=== PATIENT | female | born 1985 | race Caucasian/White ===

== ENCOUNTER 2022-11-08 08:51 | Outpatient (CLI) | payer BC, SELFPAY ==
--- NOTE | 2022-11-08 09:15 | CRLHL7_ITS ---
For Patients: As a result of the Century Cures Act, medical imaging exams and procedure reports are released immediately into your electronic medical record. You may view this report before your referring provider. If you have questions, please contact your health care provider. CLINICAL HISTORY: Epigastric pain FINDINGS: The patient`s liver is of normal size and has uniform echogenicity. There is a normal appearance of the hepatic IVC and proximal abdominal aorta. There is no evidence of ascites. The gallbladder is of normal size and there is no evidence of intraluminal stones or sludge. The gallbladder wall measures 1 mm in thickness. The common bile duct is of normal size and measures 4 mm in diameter at the level of the gennaro hepatis. The pancreas appears normal. There is no evidence of a stone or hydronephrosis within the right kidney. The right kidney measures 10.7 cm in length. Tiny too small to characterize 3 millimeter hyperechoic focus the right inferior kidney could be related to angiomyolipoma. IMPRESSION: Unremarkable ultrasound. Too small to characterize tiny 3 millimeter hyperechoic focus in the right lateral inferior kidney nonspecific could represent a tiny angiomyolipoma. Dictated by Angella Joshua MD @ 11/08/2022 10:01:28 AM (Electronically Signed)
== END 2022-11-08 08:52 | disposition home or self-care (01) ==
LOC: US 08:52
PROVIDERS: Visit Provider Physician Assistant Medical
DX: R10.13 Epigastric pain (principal)
CPT/HCPCS: 76705; 80053; 80061; 84439; 84443

== ENCOUNTER 2023-01-13 10:04 | Outpatient (CLI) | payer BC, SELFPAY ==
--- NOTE | 2023-01-13 10:15 | CRLHL7_ITS ---
For Patients: As a result of the Century Cures Act, medical imaging exams and procedure reports are released immediately into your electronic medical record. You may view this report before your referring provider. If you have questions, please contact your health care provider. Indication: PALPABLE AREA LEFT LATERAL/POSTERIOR NECK Technique: Grayscale and color Doppler ultrasound of the left lateral posterior neck performed. Comparison: None Findings: There is a normal-appearing lymph node in the subcutaneous fat measuring 9 x 3 x 8 millimeters. Normal internal vascularity. Impression: Normal subcutaneous lymph node measuring 9 millimeters. No suspicious findings. Dictated by Bryan Main MD @ 01/13/2023 1:19:49 PM (Electronically Signed)
== END 2023-01-13 10:05 | disposition home or self-care (01) ==
LOC: US 10:04
PROVIDERS: Visit Provider Registered Nurse
DX: R22.1 Localized swelling, mass and lump, neck (principal)
CPT/HCPCS: 76536

== ENCOUNTER 2023-03-29 15:27 | Outpatient (CLI) | payer BC, SELFPAY ==
--- NOTE | 2023-03-29 15:40 | CRLHL7_ITS ---
For Patients: As a result of the Century Cures Act, medical imaging exams and procedure reports are released immediately into your electronic medical record. You may view this report before your referring provider. If you have questions, please contact your health care provider. BILATERAL SCREENING MAMMOGRAM WITH COMPUTER-AIDED DETECTION TECHNIQUE: CC and MLO views were obtained. These mammographic images have been obtained using full-field digital technique. These mammographic images were interpreted with the benefit of computer-aided detection. COMPARISON FILM: Baseline. FINDINGS: The breasts are heterogeneously dense, which may obscure small masses IMPRESSION: There is no radiographic evidence for malignancy. ASSESSMENT: BI-RADS Category 1: Negative RECOMMENDATION: Routine screening mammogram in 1 year. A lay language report of this examination will be provided to the patient. Bryan Main M.D. Diagnostic Radiologist [email or web address] CASEY/Dictated by: Bryan Main MD @ 03/30/2023 8:23:00 AM (Electronically Signed)
== END 2023-03-29 15:28 | disposition home or self-care (01) ==
LOC: MAMMO 15:27
PROVIDERS: Visit Provider Registered Nurse
DX: Z12.31 Encounter for screening mammogram for malignant neoplasm of breast (principal); R92.2 Inconclusive mammogram
CPT/HCPCS: 77063; 77067

== ENCOUNTER 2023-05-05 10:10 | Outpatient (CLI) | payer BC, SELFPAY | END 2023-05-05 10:11 | disposition home or self-care (01) | LOC: NFLDREF 05-08 16:37 | PROVIDERS: Visit Provider Physician Assistant Medical | DX: E03.8 Other specified hypothyroidism (principal) | CPT/HCPCS: 84443 ==

== ENCOUNTER 2024-09-03 10:39 | Outpatient (CLI) | payer BC, SELFPAY ==
--- NOTE | 2024-09-03 10:45 | CRLHL7_ITS ---
For Patients: As a result of the Century Cures Act, medical imaging exams and procedure reports are released immediately into your electronic medical record. You may view this report before your referring provider. If you have questions, please contact your health care provider. BILATERAL SCREENING MAMMOGRAM WITH COMPUTER-AIDED DETECTION AND TOMOSYNTHESIS TECHNIQUE: CC and MLO views were obtained. These mammographic images have been obtained using full-field digital technique. These mammographic images were interpreted with the benefit of computer-aided detection. Breast Tomosynthesis was used in this interpretation. COMPARISON FILM: 03/29/23. FINDINGS: The breasts are heterogeneously dense, which may obscure small masses. IMPRESSION: There is no radiographic evidence for malignancy. ASSESSMENT: BI-RADS Category 1: Negative RECOMMENDATION: Routine screening mammogram in 1 year. A lay language report of this examination will be provided to the patient. Bryan Main M.D. Diagnostic Radiologist [email or web address] SP/Dictated by: Bryan Main MD @ 09/10/2024 9:48:00 AM (Electronically Signed)
== END 2024-09-03 10:40 | disposition home or self-care (01) ==
LOC: MAMMO 10:40
PROVIDERS: Visit Provider Registered Nurse
DX: Z12.31 Encounter for screening mammogram for malignant neoplasm of breast (principal); R92.333 Mammographic heterogeneous density, bilateral breasts
CPT/HCPCS: 77063; 77067

== ENCOUNTER 2024-10-16 18:10 | Outpatient (CLI) | payer BC, SELFPAY | END 2024-10-16 18:11 | disposition home or self-care (01) | LOC: NFLDREF 18:11 | PROVIDERS: Visit Provider Registered Nurse | DX: R63.5 Abnormal weight gain (principal) | CPT/HCPCS: 84443 ==